=== PATIENT | female | born 1980 | race Caucasian/White ===

== ENCOUNTER 2017-03-03 01:06 | Inpatient (IN) | payer MEDICAID, SELFPAY ==
[2017-03-03 01:43] VITALS: BMI 30.5
[2017-03-03] MEDS ORDERED: Ibuprofen 800 MG TAB PO PRN (02:01)
[2017-03-03] MEDS ORDERED: LR / Pitocin 40 units/1000 ml 1,000 ML IV PRN (02:01)
[2017-03-03] MEDS ORDERED: Lidocaine 1% (PF) 30 ML VIAL SC PRN (02:01)
[2017-03-03] MEDS ORDERED: Ondansetron HCl/PF 4 MG/2 ML Vial IVP PRN ×2 (02:01→05:44)
[2017-03-03] MEDS ORDERED: Methylergonovine 0.2 MG/ML VIAL IM PRN (02:01)
[2017-03-03] MEDS ORDERED: HYDROcodone/Acetaminophen 5/325 mg Tablet PO PRN ×2 (02:01)
[2017-03-03] MEDS: Lactated Ringer's 1,000 ML IV SCH ×4 (02:15→17:46)
[2017-03-03] MEDS ORDERED: Penicillin G Potassium 5 MILL.UNITS in Sodium Chloride 0.9% 100 ML IVPB SCH (02:30)
[2017-03-03 02:34] LABS: Amnisure Test RUPTURE DETECTED (No Rupture)
[2017-03-03 02:36] LABS: Amnisure Internal Control QC ACCEPTABLE (ACCEPTABLE)
[2017-03-03 03:06] LABS: Hemoglobin 14.4 g/dL (12.0-16.0); Mean Corpuscular HGB CONC 33.4 g/dL (32.0-36.0); Mean Corpuscular Hemoglobin 31.3 pg (27.0-31.0); Mean Corpuscular Volume 93.6 fl (81.0-99.0); Platelet Count 239 thou/uL (130-400); RBC Distribution Width 11.8 % (11.5-14.5); Red Blood Cell (RBC) Count 4.61 mill/uL (4.20-5.40); White Blood Cell (WBC) Count 13.5 thou/uL (4.8-10.8)
[2017-03-03 03:49] LABS: HBSAg Index 0.14 S/CO (0-0.99); Hep B Surf Ag Non-Reactive S/CO (NonReactive)
[2017-03-03] MEDS: Dextrose 5%-Lactated Ringers 1,000 ML IV SCH ×3 (04:22→22:19)
[2017-03-03] MEDS ORDERED: Fentanyl 4 mcg/Marc 0.1% Cadd 100 ML ONE (04:33)
[2017-03-03 05:28] LABS: Syphilis Antibody Nonreactive (Nonreactive); Syphilis Antibody Index 0.03 S/CO (<1.00 Non-Reactive)
[2017-03-03] MEDS ORDERED: Promethazine HCl 25 MG/ML VIAL IM PRN (05:44)
[2017-03-03] MEDS ORDERED: Naloxone HCl 0.4 mg/ml Vial IVP PRN ×2 (05:44)
[2017-03-03] MEDS ORDERED: ePHEDrine/0.9% NaCl/PF SYRINGE 50 mg/10 ml SLOW IVP PRN (05:44)
[2017-03-03] MEDS ORDERED: diphenhydrAMINE 50 MG/ML VIAL IVP PRN (05:44)
[2017-03-03] MEDS ORDERED: Lactated Ringer's 500 ML IV PRN (05:44)
[2017-03-03] MEDS ORDERED: Eucerin (Mineral Oil/Petrolatum,White) 30 gm Jar TOP PRN (05:44)
[2017-03-03] MEDS ORDERED: Acetaminophen 325 MG TAB PO PRN (05:44)
[2017-03-03] MEDS ORDERED: Communication Order-Pharmacy FS SCH (05:45)
[2017-03-03] MEDS: Penicillin G 2.5 MILL.units 2.5 MILL.UNITS in Premix Bag 1 BAG IVPB SCH ×4 (07:16→20:00)
--- NOTE | 2017-03-03 09:29 | PDOC.EVN ---
Event Note - Event Note Event Note: Pt comfortable with epidural, no complaints AVSS NAD Cat I FHT with toco q2-4 cx///-1 soft IUPC placed A/P: * with hx of CD for breech desires TOLAC. had PROM at 2330 last pm with spont ctx. cervical change from 2-4cm but no change since [address] Peter Domingo did get operative note (but we have no records here), told patient she was a good candidate with a low transverse scar and discussed risks of TOLAC with pt. Will consider augmentation with no more than 10 of pitocin. * GBS positive on PCN
[2017-03-03] MEDS ORDERED: LR 500 ML/Oxytocin 10 units 500 ML IV SCH (09:45)
[2017-03-03] MEDS: Fentanyl 4mcg/Marcaine 0.1% Cassette 100 ML EPIDURAL SCH ×3 (12:03→21:00)
--- NOTE | 2017-03-03 12:54 | PDOC.EVN ---
Event Note - Event Note Event Note: Pt feels some tightening but still comfortable T99.3, AVSS NAD Resp unlabored FHT moderate variability with late decel last 2-3 ctx cx 5.5/90/-1. Pit at 5mU/min A/P: 40 week IUP for TOLAC. * decrease pit to 4, IVFB 500cc, and change position (lates resolved) * titrate pitocin to MVU 180-200 (pit max of 10) GBS positive on PCN, afebrile
[2017-03-03] MEDS ORDERED: Bicitra 30 ML UDCUP ONE (17:04)
[2017-03-03] MEDS ORDERED: Lidocaine 2% PF 100 mg/5 ml Syringe ONE (17:04)
--- NOTE | 2017-03-03 17:10 | PDOC.EVN ---
Event Note - Event Note Event Note: Pt had epidural re-dose for left buttock groin pain at 1610 and had 6-7min deceleration at 1640 that resolved with IVFB, pit dc'd, terbutaline, position change, and O2. Pt's buttock and groin pain resolved after the bolus and she denied any incisional pain. Tmax 99.1, BP 100-110/50-60s, P60s NAD resp unlabored cx 7.5/100/0 toco q2-4 A/P: * 40 week IUP for TOLAC, now likely spontaneously laboring. Augmentation dc'd. Will continue to monitor. Pt aware we may move to urgently if indicated. Questions answered to her satisfaction * GBS positive on PCN, afebrile
[2017-03-04] MEDS ORDERED: CEFAZOLIN/Water 2 GM/20 ML SYRINGE ONE (00:22)
[2017-03-04] MEDS ORDERED: Morphine PF 1 MG/ML SYR ONE (00:28)
[2017-03-04] MEDS ORDERED: Ondansetron HCl/PF 4 MG/2 ML Vial ONE ×2 (00:30→09:47)
[2017-03-04] MEDS ORDERED: Dexamethasone 4 mg/ml Vial ONE (00:30)
[2017-03-04] MEDS ORDERED: Lidocaine 2% PF 5 ML VIAL ONE (00:30)
[2017-03-04] MEDS ORDERED: Ketorolac Tromethamine 30 MG/ML VIAL ONE ×2 (00:30→09:47)
[2017-03-04] MEDS ORDERED: Oxytocin 10 UNITS/ML VIAL ONE (00:30)
[2017-03-04] MEDS ORDERED: ePHEDrine/0.9% NaCl/PF SYRINGE 50 mg/10 ml ONE (00:30)
[2017-03-04] MEDS ORDERED: PHENYLEPHRINE-NS 100 MCG/ML 10 ML SYRINGE ONE ×2 (00:30→09:47)
--- NOTE | 2017-03-04 00:52 | PDOC.EVN ---
Event Note - Event Note Event Note: Pt still comfortable with epidural AVSS NAD, tearful . cx9/95/0 with edema, pit at 1 with adequate ctx A/P: 1. 40 week TOLAC now with arrest of dilation. R, B, A of and indications reviewed with patient and questions answered to her satisfaction. Will proceed with RCD. Ancef pre-op 2. GBS pos on PCN, Afebrile
[2017-03-04] MEDS ORDERED: Midazolam HCl 2 mg/2 ml Vial ONE (01:03)
[2017-03-04] MEDS ORDERED: Fentanyl 100 MCG/2 ML VIAL ONE (01:13)
[2017-03-04] MEDS ORDERED: Bupivacaine 0.25% HCL 30 ML VIAL ONE (01:13)
[2017-03-04] MEDS ORDERED: Naloxone HCl 0.4 mg/ml Vial IVP PRN ×2 (01:39)
[2017-03-04] MEDS ORDERED: Promethazine HCl 25 MG SUPP PR PRN (01:39)
[2017-03-04] MEDS ORDERED: Ketorolac Tromethamine 30 MG/ML VIAL IVP PRN (01:39)
[2017-03-04] MEDS ORDERED: Naloxone HCl 0.4 mg/ml Vial IV PRN (01:39)
[2017-03-04] MEDS ORDERED: Promethazine HCl 25 MG/ML VIAL IM PRN (01:39)
[2017-03-04] MEDS ORDERED: Eucerin (Mineral Oil/Petrolatum,White) 30 gm Jar TOP PRN (01:39)
[2017-03-04] MEDS ORDERED: Ondansetron HCl/PF 4 MG/2 ML Vial IVP PRN ×3 (01:39→01:54)
[2017-03-04] MEDS ORDERED: HYDROmorphone 2 MG/ML VIAL SLOW IVP PRN (01:39)
[2017-03-04] MEDS ORDERED: diphenhydrAMINE 50 MG/ML VIAL IVP PRN (01:39)
[2017-03-04] MEDS ORDERED: Meperidine HCl/PF 25 MG/ML VIAL SLOW IVP PRN (01:39)
[2017-03-04] MEDS ORDERED: Communication Order-Pharmacy FS SCH (01:45)
[2017-03-04] MEDS ORDERED: diphenhydrAMINE 25 MG CAP PO PRN (01:54)
[2017-03-04] MEDS ORDERED: Adacel (T-DAP) 0.5 ML VIAL IM ONE (02:15)
[2017-03-04] MEDS: Penicillin G 2.5 MILL.units 2.5 MILL.UNITS in Premix Bag 1 BAG IVPB SCH (02:51)
[2017-03-04] MEDS ORDERED: Dexamethasone 20 MG/5 ML VIAL ONE (09:47)
[2017-03-04] MEDS ORDERED: HYDROcodone/Acetaminophen 5/325 mg Tablet PO PRN (13:45)
[2017-03-04] MEDS: HYDROcodone/Acetaminophen 5/325 mg Tablet PO PRN ×3 (14:40→22:06)
[2017-03-04] MEDS: Ibuprofen 800 MG TAB PO PRN (22:05)
[2017-03-04] MEDS: Simethicone Chewable 80 MG TAB PO PRN (22:07)
[2017-03-04] MEDS: Docusate Calcium (SURFAK) 240 MG CAP PO SCH (22:29)
[2017-03-04] MEDS ORDERED: Docusate Calcium (SURFAK) 240 MG CAP PO SCH (22:30)
[2017-03-05] MEDS: HYDROcodone/Acetaminophen 5/325 mg Tablet PO PRN ×3 (05:33→20:48)
[2017-03-05] MEDS: Ibuprofen 800 MG TAB PO PRN ×3 (05:33→20:48)
[2017-03-05 05:44] LABS: Hemoglobin 9.9 g/dL (12.0-16.0); Mean Corpuscular HGB CONC 33.3 g/dL (32.0-36.0); Mean Corpuscular Hemoglobin 31.9 pg (27.0-31.0); Mean Corpuscular Volume 95.8 fl (81.0-99.0); Platelet Count 198 thou/uL (130-400); RBC Distribution Width 11.9 % (11.5-14.5); Red Blood Cell (RBC) Count 3.11 mill/uL (4.20-5.40); White Blood Cell (WBC) Count 16.7 thou/uL (4.8-10.8)
--- NOTE | 2017-03-05 07:03 | PDOC.PP ---
Post Progress Note Post Day #: 1-2 PO intake tolerated: yes Flatus: yes Ambulation: yes Vital Signs (12 hours) Temp Pulse Resp BP 03/05/17 04:00 98.3 F 68 20 03/05/17 00:00 98.3 F 68 20 03/04/17 20:00 98.3 F 68 20 105/60 Weight Weight 167 lb - Physical Examination General: NAD Cardiovascular: no m/r/g, RRR Respiratory: clear to auscultation bilaterally Abdominal: + bowel sounds, lochia, no distention, appropriately TTP Extremities: negative homans (B) Skin: CS incision dry & intact, no rash Neurological: no gross focal deficits Psychiatric: A&Ox3, normal affect Result Diagrams: 03/05/17 05:13 Additional Labs: Post Labs Hep Bs Antigen Non-Reactive S/CO (NonReactive) 03/03/17 02:15 - Assessment/Plan discussed post cs care. pt considering pm dc today due to financial reasons as elizalde ob. no medical impediment to dc noted.
[2017-03-05] MEDS: Docusate Calcium (SURFAK) 240 MG CAP PO SCH ×2 (09:08→20:48)
[2017-03-05] MEDS: Simethicone Chewable 80 MG TAB PO PRN (20:47)
[2017-03-06] MEDS: Ibuprofen 800 MG TAB PO PRN (04:36)
[2017-03-06] MEDS: Simethicone Chewable 80 MG TAB PO PRN (04:36)
[2017-03-06] MEDS: HYDROcodone/Acetaminophen 5/325 mg Tablet PO PRN ×2 (04:37→10:20)
--- NOTE | 2017-03-06 07:47 | DIS ---
ADMITTING DIAGNOSES: 1. Premature rupture of membranes. 2. Prior x1. 3. Desires trial of labor after . 4. GBS positive. DISCHARGE DIAGNOSES: 1. Premature rupture of membranes. 2. Prior x1. 3. Desires trial of labor after . 4. GBS positive. PROCEDURE: Repeat lower transverse section. CONSULTATIONS: None. HOSPITAL COURSE: The patient is a 36-year-old G2, P1 female who presented at term with complaints of leakage of fluid and was found to have rupture of membranes and mike. The patient desired tr ial of labor after and after approximately 24 hours, arrested at 9 cm and ultimately had a r epeat . The patient's postoperative course has been uncomplicated. She is now postoperativ e day #2 and desires discharge home. The patient reports she is tolerating p.o., voiding on her own, having decreased lochia and good pain control. PHYSICAL EXAMINATION: VITAL SIGNS: Today, the day of discharge, blood pressure 107/61, temperature 98.6, pulse of 83, resp iratory rate of 16. GENERAL: She appears to be in no acute distress. She is alert and oriented, and cooperative and ple asant to interact with. HEENT: Normocephalic, atraumatic. ABDOMEN: Fundus is firm. Incision is clean, dry, and intact with suture and Steri-Strips. She has some bruising, but there is no erythema or induration. EXTREMITIES: Nontender, nonedematous. hemoglobin is 9.9, hematocrit 29.8, platelets of 198,000. The patient is being discharged to home on ibuprofen and tramadol. She has instructions to follow up with Dr. Domingo in 2 weeks and to seek medical attention sooner if she experiences increasing pain, bleeding, fever, redness, drainage or firmness at her incision site.
[2017-03-06] MEDS: Docusate Calcium (SURFAK) 240 MG CAP PO SCH (08:30)
[2017-03-06 09:25] VITALS: BP 105/63; TEMP 98.5
== END 2017-03-06 12:35 | disposition home or self-care (01) | DRG 766 ==
LOC: L&D/OP 01:06 → L&D 01:56 → 3SW 03-04 04:09
PROVIDERS: ADMIT Obstetrics & Gynecology; ATTEND Obstetrics & Gynecology
PROC: 10D00Z1 Extraction of Products of Conception, Low, Open Approach (ICD-10-PCS; principal; 2017-03-04)
PROC: 4A0HXCZ Measurement of Products of Conception, Cardiac Rate, External Approach (ICD-10-PCS; 2017-03-04)
PROC: 3E0T3BZ Introduction of Anesthetic Agent into Peripheral Nerves and Plexi, Percutaneous Approach (ICD-10-PCS; 2017-03-04)
DX: O48.0 Post-term pregnancy (principal); O32.4XX0 Maternal care for high head at term, not applicable or unspecified; O99.824 Streptococcus B carrier state complicating childbirth; O76 Abnormality in fetal heart rate and rhythm complicating labor and delivery; O34.211 Maternal care for low transverse scar from previous cesarean delivery; Z3A.40 40 weeks gestation of pregnancy; Z37.0 Single live birth
CPT/HCPCS: 36415; 51702; 84112; 85027; 86780; 87340; 99285; J1100; J1885; J2001; J2250; J2274; J2405; J2540; J2590; J3010; J7050; J7120; S0020